=== PATIENT | male | born 1995 | race Caucasian/White ===

== ENCOUNTER 2021-04-11 11:38 | Emergency (ER) | payer OTHER, SELFPAY ==
[2021-04-11 11:42] VITALS: BP 124/68; PULSE 80; RESP 20; TEMP 36.6; O2SAT 99
--- NOTE | 2021-04-11 11:50 | ED.DENTAL ---
HPI - Dental/Oral General Chief complaint: Dental/Oral Stated complaint: Possible Tooth Infection on left side Time Seen by Provider: 04/11/21 11:50 Source: patient and RN notes reviewed History of Present Illness HPI Narrative: Patient is a 25-year-old male who presents the urgent care with his mother with complaints of left lower wisdom tooth pain and jaw swelling. Patient states that the swelling happened overnight. States that he has had the eruption of the wisdom tooth for the last 2 months but started having pain approximately 2 days ago. Patient also reports of some nausea. Denies of any fevers, chills, vomiting. States that he did call the emergency line at the [facility] and they advised him to call back tomorrow morning to check for an emergency appointment. No other acute complaints. No acute distress noted. Patient aware of the plan of care. Some parts of this dictation were generated by voice recognition software and may contain typographical and/or grammatical inaccuracies. Related Data Allergies Allergy/AdvReac Type Severity Reaction Status Date / Time No Known Allergies Allergy Verified 04/11/21 12:03 Review of Systems Review of Systems: CONSTITUTIONAL: Denies fever, chills, or sweats. EYES: Denies visual changes, redness, or discharge. ENT: Denies rhinorrhea, congestion, sore throat, or otalgia. Reports of left lower jaw pain/swelling and dental pain CARDIOVASCULAR: Denies chest pain, palpitations, or edema. RESPIRATORY: Denies cough or dyspnea. GASTROINTESTINAL: Reports of nausea without abdominal pain, vomiting or diarrhea GENITOURINARY: Denies dysuria or hematuria. SKIN: Denies rash or itching. MUSCULOSKELETAL: Denies back pain, joint pain, or myalgia. NEUROLOGIC: Denies headache, numbness, or weakness. All other systems reviewed are negative, except as documented in HPI. PMFSH Comments At the time of my signature, I reviewed and agree with the nursing past medical, surgical, social, and family history. There is no relevant family history pertinent to the patient complaint. Exam Narrative: GENERAL: This is a well-nourished, well-developed patient, in no apparent distress. HEAD: normocephalic, atraumatic. EYES: PERRL. Sclera clear/white. Vision is grossly intact. EARS: External ears normal NOSE: External nose normal with no obvious nasal discharge, nares without redness, no rhinorrhea. THROAT: Mucous membranes moist, posterior pharynx clear. DENTAL: Good dental hygiene. Irruption of tooth #17 with moderate surrounding erythema and edema. Moderate left lower facial swelling NECK: Neck supple, non-tender without lymphadenopathy CARDIOVASCULAR: Regular rate and rhythm without murmurs, gallops, or rubs. RESPIRATORY: Clear to auscultation. Breath sounds equal bilaterally. No wheezes, rales, or rhonchi. SKIN: warm, intact with no suspicious lesions or rash, good texture and turgor. NEURO: awake, alert, and oriented to person, place and time. There were no obvious focal neurologic abnormalities. EXTREMITIES: No clubbing, cyanosis, or edema. Course Vital Signs Vital signs: Vital Signs Temperature 97.8 F 04/11/21 11:42 Pulse Rate 80 04/11/21 11:42 Respiratory Rate 20 04/11/21 11:42 Blood Pressure 124/68 04/11/21 11:42 Pulse Oximetry 99 04/11/21 11:42 Temperature 97.8 F 04/11/21 11:42 Pulse Rate 80 04/11/21 11:42 Respiratory Rate 20 04/11/21 11:42 Blood Pressure 124/68 04/11/21 11:42 Pulse Oximetry 99 04/11/21 11:42 Reviewed MDM - Dental/Oral MDM Narrative Medical decision making narrative: Advised the patient to complete oral antibiotic regimen as prescribed. Be sure to eat and drink with the medication. Use ice to the left lower jaw for comfort. Use ibuprofen as needed for pain. May use Benadryl for the swelling as needed. Be sure to follow-up as directed with the dental school tomorrow morning and let them know that you are on oral antibiotics. If you devel
== END 2021-04-11 12:10 | disposition home or self-care (01) ==
PROVIDERS: Emergency Provider Nurse Practitioner Family
DX: K04.7 Periapical abscess without sinus (principal)
CPT/HCPCS: 99203; G0463